=== PATIENT | male | born 2000 | race Hispanic/Latino ===

== ENCOUNTER → 2023-10-20 | Day surgery (SDC) | payer OTHER ==
[~2023-10-20] MED LIST: FENTANYL CITRATE/PF 100MCG/2 ML INJ ONE; HYOSCYAMINE SULFATE 0.5 MG/ML INJ ONE; LIDOCAINE HCL 2% LOCAL INJ 5 ML SDV VIAL INJ ONE; MIDAZOLAM HCL 2 MG/2 ML VIAL ONE; PROPOFOL IV EMULSION 50 ML IV ONE; STOOL SOFTENER50 MG
[2023-10-20] MEDS: LACTATED RINGER'S 1,000 ML ONE (07:17)
[2023-10-20 09:52] VITALS: TEMP 97
[2023-10-20 10:14] VITALS: BP 107/75; PULSE 82; RESP 18; O2SAT 99
== END | disposition home or self-care (01) ==
LOC: OR 05:55
PROVIDERS: ATTEND Internal Medicine Gastroenterology
DX: K51.90 Ulcerative colitis, unspecified, without complications (principal); K63.5 Polyp of colon; K59.00 Constipation, unspecified; K57.92 Diverticulitis of intestine, part unspecified, without perforation or abscess without bleeding; N32.1 Vesicointestinal fistula; I10 Essential (primary) hypertension; R79.89 Other specified abnormal findings of blood chemistry; D68.00 Von Willebrand disease, unspecified; F41.9 Anxiety disorder, unspecified; Z80.0 Family history of malignant neoplasm of digestive organs
CPT/HCPCS: 45380; J1980; J2001; J2250; J2704; J3010; J7121